=== PATIENT | female | born 1960 | race Caucasian/White ===

== ENCOUNTER 2021-10-09 09:44 | Outpatient (CLI) | payer OTHER, SELFPAY ==
--- NOTE | 2021-10-09 09:54 | XR_ITS ---
WS: [id number] SHOULDER RIGHT TECHNIQUE: 3 views of the right shoulder CLINICAL INFORMATION: RIGHT SHOULDER PAIN COMPARISON: None. FINDINGS: Mild degenerative arthritis AC joint and glenohumeral joint. Mild narrowing of the subacromial space. Osteopenia. No acute fractures. Visualized right lung is normal. XR/XR shoulder RT min 2V* 12230 IMPRESSION: Mild degenerative arthritis right shoulder. No acute fractures.
== END 2021-10-09 09:45 | disposition home or self-care (01) ==
PROVIDERS: Visit Provider Emergency Medicine
DX: M19.011 Primary osteoarthritis, right shoulder (principal)
CPT/HCPCS: 73030

== ENCOUNTER 2021-10-30 07:52 | Outpatient (CLI) | payer OTHER, SELFPAY ==
--- NOTE | 2021-10-30 | CT_ITS ---
WS: [id number] CT NECK WITH CONTRAST HISTORY: OTALGIA TECHNIQUE: Contiguous 5 mm axial images are performed through the neck with intravenous contrast. Sag ittal and coronal reformats are also submitted. All CT scans at [facility] use at least one o f these dose optimization techniques: automated exposure control; mA and/or kV adjustment per patient size (includes targeted exams where dose is matched to clinical indication); or iterative reconstruc tion. CONTRAST: CONTRAST: Omnipaque 300; 80 mL IV. DLP: 976.28 mGycm COMPARISON: None available. Artifact from the patient's dental amalgam is obscuring portions of the oropharynx and tongue base. N o mass or airway obstruction is identified. There is no asymmetry of the airway. Epiglottis and the v ocal cords are symmetric bilaterally. No enhancing mass. Torus tubarius and fossa of Rosenmuller and parapharyngeal fat are normal. No significant lymphadenopathy is identified. Mildly heterogeneous thyroid. There is an enlarged RIGHT inferior thyroid lobe with a central coarse calcification. Nodule in the lower RIGHT thyroid measures 2.4 x 2.1 x 2.5 cm. And submandibular gland s are symmetric bilaterally. No mass or abnormal enhancement. No osseous abnormalities. Visualized portions of the skull base demonstrate no abnormalities. Orbits and globes are within norm al limits. No soft tissue masses. Mild mucoperiosteal thickening in the ethmoid air cells. No air-fluid levels. Mild coalescence of the mastoid air cells. Lung apices are clear. CT/CT neck w con* [id number] IMPRESSION: 1. No neck mass or adenopathy. 2. Parapharyngeal fat is normal. No abnormality noted along the course of the internal auditory canals. 3. Mild coalescence of the mastoid air cells with changes of chronic mastoidit is. No increased soft tissue along the internal auditory canals. 4. Inferior RIGHT thyroid nodule. Consider follow-up with ultrasound.
[2021-10-30 08:28] LABS: Blood Urea Nitrogen 10 mg/dL (8-23); Glomerular Filtration Rate 63.2 mL/min (90-130)
[2021-10-30] MEDS: iohexol 300 mg/mL 100 mL Btl IV (14:55)
== END 2021-10-30 07:53 | disposition home or self-care (01) ==
PROVIDERS: Visit Provider Specialist
DX: H92.09 Otalgia, unspecified ear (principal); E04.1 Nontoxic single thyroid nodule
CPT/HCPCS: 70491; 82565; 84520; Q9967

== ENCOUNTER 2022-09-03 11:57 | Outpatient (CLI) | payer OTHER, SELFPAY ==
--- NOTE | 2022-09-03 12:04 | MM_ITS ---
WS: [id number] BILATERAL SCREENING DIGITAL TOMOSYNTHESIS MAMMOGRAM WITH CAD HISTORY: SCREENING COMPARISON: 06/30/2018 and 03/10/2017 Bilateral CC and MLO views with tomosynthesis and synthetic mammography submitted. Computer aided det ection analyzed. Breast composition: The breasts are heterogeneously dense, which may obscure small masses. No suspici ous masses, microcalcifications or architectural distortion. MM/[place] [id number] IMPRESSION: BI-RADS: 1-Negative FOLLOW UP: 1 Year Follow-up
== END 2022-09-03 11:58 | disposition home or self-care (01) ==
PROVIDERS: PCP Internal Medicine; Visit Provider Internal Medicine
DX: Z12.31 Encounter for screening mammogram for malignant neoplasm of breast (principal)
CPT/HCPCS: 77063; 77067

== ENCOUNTER 2023-12-21 11:51 | Outpatient (CLI) | payer OTHER, SELFPAY ==
--- NOTE | 2023-12-21 11:57 | ECG_ITS ---
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 Interpretive Statements NAME OF STUDY: TREADMILL STRESS TEST INDICATION: ABNORMAL EKG, PROCEDURE: At the baseline, the patient's blood pressure was 126/63 with a heart rate of 86. The baseline electrocardiogram showed normal sinus rhythm with normal ST-Ts. Poor R wave progression. Possible old septal MD. The patient exercised for 10 minutes and 30 seconds on a standard Jostin protocol. Patient attained a maximum heart rate of 140 beats per minute(90% of the maximum predicted heart rate) with a blood pressure at the peak exercise of 156/76 mm Hg. The EKG at the peak exercise revealed no significant changes. Patient did not have any chest pain or any significant cardiac arrhythmias with the exercise During the recovery phase, there were no new changes. Blood pressure at the end of the recovery phase was 125/74 mm Hg with a heart rate of 95 per minute. CONCLUSION: 1. Normal EKG response to treadmill exercise 2. No exercise-induced chest pain or cardiac arrhythmia 3. Good exercise tolerance, attained a maximum of 13.5 METs 4. Low probability for coronary ischemia, based on the above findings Electronically Signed On 12-26-2023 20:16:26 BUILDING MAINTENANCE CUSTODIAN by Christy Mullen M.D. [email or web address]
[2023-12-21 11:58] VITALS: BMI 25.9
[2023-12-21 12:45] VITALS: BP 125/74; PULSE 94
== END 2023-12-21 11:52 | disposition home or self-care (01) ==
LOC: CDL 11:52
PROVIDERS: PCP Internal Medicine; Visit Provider Internal Medicine
DX: R94.31 Abnormal electrocardiogram [ECG] [EKG] (principal)
CPT/HCPCS: 93017

== ENCOUNTER 2024-10-27 13:56 | Outpatient (CLI) | payer OTHER, SELFPAY ==
--- NOTE | 2024-10-27 14:01 | MM_ITS ---
WS: [id number] BILATERAL SCREENING DIGITAL TOMOSYNTHESIS MAMMOGRAM WITH CAD HISTORY: SCREENING COMPARISON: 09/03/2022 and 06/30/2018 Bilateral CC and MLO views with tomosynthesis and synthetic mammography submitted. Computer aided det ection analyzed. Breast composition: The breasts are heterogeneously dense, which may obscure small masses. No suspici ous masses, microcalcifications or architectural distortion. MM/MM scr BI tomosynthesis [id number] IMPRESSION: BI-RADS: 1 - Negative FOLLOW UP: 1 Year Follow-up
== END 2024-10-27 13:57 | disposition home or self-care (01) ==
LOC: RAD 14:00
PROVIDERS: PCP Nurse Practitioner Family; Visit Provider Nurse Practitioner Family
DX: Z12.31 Encounter for screening mammogram for malignant neoplasm of breast (principal); R92.333 Mammographic heterogeneous density, bilateral breasts
CPT/HCPCS: 77063; 77067